=== PATIENT | male | born 1985 | race Caucasian/White ===

== ENCOUNTER 2024-09-09 23:42 | Emergency (ER) | payer MEDICAID ==
[~2024-09-09] VITALS: Ht 172.7 cm; Wt 91.0 kg
[2024-09-09 23:43] VITALS: TEMP 36.8; O2SAT 100
[2024-09-10 00:28] VITALS: BP 144/83; PULSE 100; RESP 18
[2024-09-10] MEDS: KETOROLAC 15MG/ML VIAL IM ONE (00:28)
[2024-09-10] MEDS ORDERED: NAPR-1176 MT (02:53)
[2024-09-10] MEDS ORDERED: LIDO700A15 TP (02:53)
[2024-09-10] MEDS: HYDROCODONE/ACETAMINOPHEN 5/325MG TABLET PO ONE (03:00)
== END 2024-09-10 03:17 | disposition home or self-care (01) ==
LOC: ER 23:42
DX: S40.011A Contusion of right shoulder, initial encounter (principal); E11.9 Type 2 diabetes mellitus without complications; Z98.890 Other specified postprocedural states; Z79.899 Other long term (current) drug therapy; W22.09XA Striking against other stationary object, initial encounter; Y93.89 Activity, other specified; Y92.89 Other specified places as the place of occurrence of the external cause; Y99.8 Other external cause status
CPT/HCPCS: 99283; 73030; 96372; J1885; Z7610